=== PATIENT | female | born 1990 | race African-American/Black ===

== ENCOUNTER 2017-08-30 14:50 | Emergency (ER) | payer MEDICAID ==
[~2017-08-30] VITALS: Ht 162.6 cm; Wt 85.0 kg
[2017-08-30 14:58] VITALS: BP 117/56; PULSE 96; RESP 18; TEMP 97.7; O2SAT 99
[2017-08-30] MEDS ORDERED: SODIUM CHLORIDE 0.9% FLUSH 10 ML FLUSH IVF PRN (15:30)
[2017-08-30] MEDS ORDERED: SODIUM CHLOR 0.9% 1000 ML INJ 1,000 ML IV ONE ×2 (15:30→17:00)
--- NOTE | 2017-08-30 15:34 | PD ---
HPI Chief Complaint: Chest Pain Time Seen by Provider: 15:23 Travel History International Travel<30 days: No Contact w/Intl Traveler<30days: No Traveled to known affect area: No History of Present Illness HPI Patient is a 26-year-old female who is 34 weeks and currently being followed by [facility] SENIOR POLICY ADVISOR, presents the emergency room complaints of chest pain. Patient reports that she woke up around 2 AM this morning feeling short of breath. Patient reports that she is not having pleuritic substernal chest pain with associated nausea and vomiting. Patient reports that nothing makes pain better or worse, reports that overall, she feels weak. Patient denies any recent travels or trips, patient denies any history of PE or DVT. Patient reports that she is 6, reports that she has had these symptoms previously and her other and was given some medication to feel better. Patient did not take any medications prior to coming to the emergency room. Patient also reports that for the past 2 weeks, she has been having abdominal cramping, her primary care doctor told her to go to the SENIOR POLICY ADVISOR, patient has not followed-up with the SENIOR POLICY ADVISOR as she was too busy working. Patient reports that she has been having abdominal cramping which feels like contractions for the past 2 weeks, denies any passage of blood or vaginal fluid. Denies any fevers or chills, denies any history of hypertension, hyperlipidemia, patient with no cardiac history. [facility] Past Medical History Medical History: Denies Significant Hx ?: LMP: 01/06/18 Past Surgical History Surgical History: No Previous Surgery Social History Alcohol Use: No Tobacco Use: No Substance Use: No Allergies-Medications (Allergen,Severity, Reaction): Coded Allergies: iodine (Verified Allergy, Severe, Rash, 08/30/17) shellfish derived (Verified Allergy, Severe, 08/30/17) Reported Meds & Prescriptions Reported Meds & Active Scripts Active No Active Prescriptions or Reported Medications Review of Systems General / Constitutional: No: Fever Eyes: No: Visual changes HENT: No: Headaches Cardiovascular: Positive: Chest Pain or Discomfort Respiratory: Positive: Shortness of Breath Gastrointestinal: Positive: Nausea, Vomiting, No: Abdominal Pain Genitourinary: No: Dysuria Musculoskeletal: No: Pain Skin: No Rash Neurologic: No: Weakness Psychiatric: No: Depression Endocrine: No: Polydipsia Hematologic/Lymphatic: No: Easy Bruising Physical Exam Narrative GENERAL: Mild distress SKIN: Focused skin assessment warm/dry. HEAD: Atraumatic. Normocephalic. EYES: Pupils equal and round. No scleral icterus. No injection or drainage. ENT: No nasal bleeding or discharge. Mucous membranes pink and moist. NECK: Trachea midline. No JVD. CARDIOVASCULAR: Regular rate and rhythm. No murmur appreciated. RESPIRATORY: No accessory muscle use. Clear to auscultation. Breath sounds equal bilaterally. GASTROINTESTINAL: Abdomen soft, non-tender, gravid abdomen, hepatic and splenic margins not palpable. MUSCULOSKELETAL: No obvious deformities. No clubbing. No cyanosis. No edema. NEUROLOGICAL: Awake and alert. No obvious cranial nerve deficits. Motor grossly within normal limits. Normal speech. PSYCHIATRIC: Appropriate mood and affect; insight and judgment normal. Data Data Last Documented VS Vital Signs Date Time Temp Pulse Resp B/P (MAP) Pulse Ox O2 Delivery O2 Flow Rate FiO2 08/30/17 17:11 96 22 128/81 (97) 100 Room Air 08/30/17 14:58 97.7 Orders Orders Electrocardiogram (08/30/17 15:29) Basic Metabolic Panel (Bmp) (08/30/17 15:29) Ckmb (Isoenzyme) Profile (08/30/17 15:29) Complete Blood Count With Diff (08/30/17 15:29) Magnesium (Mg) (08/30/17 15:29) Prothrombin Time / Inr (Pt) (08/30/17 15:29) Act Partial Throm Time (Ptt) (08/30/17 15:29) Troponin I (08/30/17 15:29) Chest, Single Ap (08/30/17 15:29) Ecg Monitoring (08/30/17 15:29) Bilateral Bp Monitoring (08/30/17 15:29) Iv Access Insert/Monitor (08/30/17 15:29) Oximetry (08/30/17 15:29) Sodium Chloride 0.9% Flush (Ns Flush) (08/30/17 15:30) Sodium Chlor 0.9% 1000 Ml Inj (Ns 1000 M (08/30/17 15:30) Sodium Chlor 0.9% 1000 Ml Inj (Ns 1000 M (08/30/17 17:00) Labs Laboratory Tests Test 08/30/17 15:45 White Blood Count 9.5 TH/MM3 Red Blood Count 3.31 MIL/MM3 Hemoglobin 10.7 GM/DL Hematocrit 31.2 % Mean Corpuscular Volume 94.2 FL Mean Corpuscular Hemoglobin 32.2 PG Mean Corpuscular Hemoglobin Concent 34.2 % Red Cell Distribution Width 13.5 % Platelet Count 277 TH/MM3 Mean Platelet Volume 8.2 FL Neutrophils (%) (Auto) 74.2 % Lymphocytes (%) (Auto) 14.1 % Monocytes (%) (Auto) 7.6 % Eosinophils (%) (Auto) 3.6 % Basophils (%) (Auto) 0.5 % Neutrophils # (Auto) 7.0 TH/MM3 Lymphocytes # (Auto) 1.3 TH/MM3 Monocytes # (Auto) 0.7 TH/MM3 Eosinophils # (Auto) 0.3 TH/MM3 Basophils # (Auto) 0.0 TH/MM3 CBC Comment DIFF FINAL Differential Comment Prothrombin Time 10.1 SEC Prothromb Time International Ratio 1.0 RATIO Activated Partial Thromboplast Time 26.8 SEC Blood Urea Nitrogen 7 MG/DL Creatinine 0.46 MG/DL Random Glucose 74 MG/DL Calcium Level 8.6 MG/DL Magnesium Level 2.0 MG/DL Sodium Level 136 MEQ/L Potassium Level 3.8 MEQ/L Chloride Level 104 MEQ/L Carbon Dioxide Level 22.8 MEQ/L Anion Gap 9 MEQ/L Estimat Glomerular Filtration Rate 202 ML/MIN Total Creatine Kinase 59 U/L Troponin I LESS THAN 0.02 NG/ML MDM Medical Decision Making Medical Screen Exam Complete: Yes Emergency Medical Condition: Yes Medical Record Reviewed: Yes Interpretation(s) EKG at 1516: Sinus tachycardia at 100 bpm, QT/QTc 329/386, no acute ST or T- wave changes Vital Signs Date Time Temp Pulse Resp B/P (MAP) Pulse Ox O2 Delivery O2 Flow Rate FiO2 08/30/17 14:58 97.7 96 18 117/56 (40) 99 Differential Diagnosis Pleurisy, ACS, arrhythmia, electrolyte abnormality Narrative Course During the course of the patients emergency department visit, the patients history, examination, and differential diagnosis were reviewed with the patient. The patient was placed on a radiation monitor with oximetry and frequent blood pressure monitoring. The patient had an IV access obtained and blood work sent for analysis. The patient was initially provided IV fluids. Discussed with patient need for CTA to rule out PE given her pleuritic chest pain, patient adamantly refuses CAT scan at this time. Patient understands that when she is cleared from the emergency room, she will need to go to OB triage as she is complaining of abdominal cramping for the past 2 weeks. She will need to have monitoring. The patients laboratory studies were reviewed and remarkable for CBC & BMP Diagram 08/30/17 15:45 Calcium Level 8.6, Magnesium Level 2.0 Radiology studies were reviewed and remarkable for Last Impressions Chest X-Ray 08/30/17 1529 Signed Impressions: Service Date/Time: Wednesday, August 30, 2017 15:32 - CONCLUSION: No acute cardiopulmonary disease identified. Faheem Quiñones MD Patient reevaluated, patient reports that she is only feeling a little better, she still feels weak, another liter of IVF was given to her. Patient with pleuritic chest pain, continues to refuse PE study at this time. Patient will leave the ER against medical advice. Patient reports increased lower abdominal cramping and pelvic pressure with back pain, she will be sent upstairs to OB monitoring. Diagnosis Primary Impression: Chest pain Qualified Codes: R07.9 - Chest pain, unspecified Additional Impression: Abdominal cramping affecting Patient Instructions: General Instructions Additional Instructions: You may return to the emergency room at anytime for re-evaluation Please follow up with your primary care doctor as soon as possible Please follow up with your distribution engineering technologist as soon as possible Scripts No Active Prescriptions or Reported Meds Marge Buck DO August 30, 2017 15:34
--- NOTE | 2017-08-30 15:47 | RADRPT ---
EXAM DATE/TIME: 08/30/2017 15:32 [facility] COMPARISON: No previous studies available for comparison. INDICATIONS : Chest pain and dizziness for one day. MEDICAL HISTORY : None. SURGICAL HISTORY : None. ENCOUNTER: Initial ACUITY: 1 day PAIN SCORE: 6/10 LOCATION: Bilateral chest FINDINGS: Single AP view of the chest. The lungs are clear. Cardiomediastinal silhouette within normal limits. No evidence of pleural effusion or pneumothorax. CONCLUSION: No acute cardiopulmonary disease identified. Faheem Quiñones MD on August 30, 2017 at 15:45 Board Certified Radiologist. This report was verified electronically.
[2017-08-30 16:03] VITALS: PULSE 108; RESP 16; O2SAT 98
[2017-08-30 16:15] LABS: BASOPHIL % 0.5 % (0.0-2.0); EOSINOPHIL # 0.3 TH/MM3 (0-0.4); EOSINOPHIL % 3.6 % (0.0-4.0); HEMATOCRIT 31.2 % (35.0-46.0); HEMOGLOBIN 10.7 GM/DL (11.6-15.3); LYMPH % 14.1 % (9.0-44.0); LYMPHOCYTE # 1.3 TH/MM3 (1.0-4.8); MEAN CELL VOLUME 94.2 FL (80.0-100.0); MEAN CORPUSCULAR HEMOGLOBIN 32.2 PG (27.0-34.0); MEAN CORPUSCULAR HGB CONC 34.2 % (32.0-36.0); MEAN PLATELET VOLUME 8.2 FL (7.0-11.0); MONO % 7.6 % (0.0-8.0); MONOCYTE # 0.7 TH/MM3 (0-0.9); NEUT % 74.2 % (16.0-70.0); PLATELET COUNT 277 TH/MM3 (150-450); RED BLOOD COUNT 3.31 MIL/MM3 (4.00-5.30); RED CELL DISTRIBUTION WIDTH 13.5 % (11.6-17.2); WHITE BLOOD COUNT 9.5 TH/MM3 (4.0-11.0)
[2017-08-30 16:24] LABS: PROTHROMBIN TIME - PATIENT 10.1 SEC (9.8-11.6)
[2017-08-30 16:35] LABS: BICARBONATE 22.8 MEQ/L (21.0-32.0); BLOOD UREA NITROGEN 7 MG/DL (7-18); CALCIUM 8.6 MG/DL (8.5-10.1); CHLORIDE 104 MEQ/L (98-107); CREATININE 0.46 MG/DL (0.50-1.00); GLOMERULAR FILTRATION RATE 202 ML/MIN (>89); GLUCOSE,RANDOM 74 MG/DL (74-106); SODIUM (NA) 136 MEQ/L (136-145)
[2017-08-30 16:39] LABS: TROPONIN I LESS THAN 0.02 NG/ML (0.02-0.05)
[2017-08-30 17:11] VITALS: BP 128/81; PULSE 96; RESP 22; O2SAT 100
--- NOTE | 2017-08-30 18:56 | PD ---
HPI Chief Complaint Shortness of breath chest pain today Date Seen: August 30, 2017 Time Seen: 18:48 Travel History International Travel<30 Days: No Contact w/Intl Traveler<30Days: No Known Affected Area: No History of Present Illness HPI Patient is 26-year-old black female previous 1 now 34 weeks who sees the [facility] and is sent up here to OB ED from the main emergency room where she has been getting a chest pain workup downstairs, she had a negative EKG and chest x-ray as well as troponin levels and all her lab was within normal limits, the patient refused pulmonary angiogram or V/Q, and she was wanting to sign out of the emergency room AMA but they convinced her to come up to OB ED to monitor the baby, she is having no obstetric problem no leakage of fluid bleeding or contractions, heart rate tracing is reactive Weeks Gestation: 34 Para: 1 : 4 History Obstetric History Obstetric History 1 2 early losses Past Surgical History Narrative Surgical Social History Alcohol Use: No Tobacco Use: No Substance Abuse: No Allergies-Medications (Allergen,Severity, Reaction): Coded Allergies: iodine (Verified Allergy, Severe, Rash, 08/30/17) shellfish derived (Verified Allergy, Severe, 08/30/17) Home Meds No Active Prescriptions or Reported Meds Review of Systems General / Constitutional: No: Fever, Weight Gain, Chills, Other Eyes: No: Diploplia, Blurred Vision, Visual changes, Pain, Photophobia HENT: No: Headaches, Vertigo, Lightheadedness Cardiovascular: Chest Pain or Discomfort, No: Irregular Rhythm, Palpitations, Tachycardia, Syncope, Varicosities, Edema, Cyanosis Respiratory: Short of Breath, No: Cough, Other Gastrointestinal: Abdominal Pain, No: Nausea, Vomiting, Diarrhea Genitourinary: No: Decreased Urinary Output, Oliguria Musculoskeletal: No: Limited ROM, Weakness, Cramping, Edema, Pain Skin: No Rash, No Itching, No Dryness, No Lumps, No Change in Pigmentation, No Change in Nails, No Alopecia, No Lesions Neurologic: No: Weakness, Dizziness, Syncope, Focal Abnormalities, Coordination Problem, Headache, Slurred Speech, Seizures Psychiatric: No: Depression, Suicidal Ideations, Homicidal Ideation Endocrine: No: Heat Intolerance, Cold Intolerance, Polydipsia, Polyuria, Other Physical Exam Vital Signs Date Time Temp Pulse Resp B/P (MAP) Pulse Ox O2 Delivery O2 Flow Rate FiO2 08/30/17 17:11 96 22 128/81 (97) 100 Room Air 08/30/17 16:03 108 16 08/30/17 16:03 108 16 98 Room Air 08/30/17 14:58 97.7 96 18 117/56 (76) 99 Narrative GENERAL: Well-nourished, well-developed patient. SKIN: Warm and dry. HEAD: Normocephalic and atraumatic. EYES: No scleral icterus. No injection or drainage. ENT: No nasal drainage noted. Mucous membranes pink. Airway patent. NECK: Supple, trachea midline. No JVD. CARDIOVASCULAR: Regular rate and rhythm without murmurs, gallops, or rubs. RESPIRATORY: Breath sounds equal bilaterally. No accessory muscle use. BREASTS: Bilateral exam showed no masses , no retractions, no nipple discharge. ABDOMEN/GI: Abdomen soft, non-tender, bowel sounds present, no rebound, no guarding Gravid to [34-] weeks size Fundal Height: [34-] GENITOURINARY: External Genitalia: intact and normal in appearance BUS glands: [-] Cervix: [-post] Dilatation: [-0] Effacement: [0-] Station: [-3] Presentation: [-] Membranes: [intact ] Uterine Contractions: [none-] FHT's: Category: [1-] Baseline: [133-] Reactive: [R-] Variability: [mod-] Decels: [-none] EXTREMITIES: No cyanosis or edema. BACK: Nontender without obvious deformity. No CVA tenderness. NEUROLOGICAL: Awake and alert. Motor and sensory grossly within normal limits. Five out of 5 muscle strength in all muscle groups. Normal speech. Data Data Orders Orders Electrocardiogram (08/30/17 15:29) Basic Metabolic Panel (Bmp) (08/30/17 15:29) Ckmb (Isoenzyme) Profile (08/30/17 15:29) Complete Blood Count With Diff (08/30/17 15:29) Magnesium (Mg) (08/30/17 15:29) Prothrombin Time / Inr (Pt) (08/30/17 15:29) Act Partial Throm Time (Ptt) (08/30/17 15:29) Troponin I (08/30/17 15:29) Chest, Single Ap (08/30/17 15:29) Ecg Monitoring (08/30/17 15:29) Bilateral Bp Monitoring (08/30/17 15:29) Iv Access Insert/Monitor (08/30/17 15:29) Oximetry (08/30/17 15:29) Sodium Chloride 0.9% Flush (Ns Flush) (08/30/17 15:30) Sodium Chlor 0.9% 1000 Ml Inj (Ns 1000 M (08/30/17 15:30) Sodium Chlor 0.9% 1000 Ml Inj (Ns 1000 M (08/30/17 17:00) Labs UA dip on REMI negative Laboratory Tests Test 08/30/17 15:45 White Blood Count 9.5 Red Blood Count 3.31 Hemoglobin 10.7 Hematocrit 31.2 Mean Corpuscular Volume 94.2 Mean Corpuscular Hemoglobin 32.2 Mean Corpuscular Hemoglobin Concent 34.2 Red Cell Distribution Width 13.5 Platelet Count 277 Mean Platelet Volume 8.2 Neutrophils (%) (Auto) 74.2 Lymphocytes (%) (Auto) 14.1 Monocytes (%) (Auto) 7.6 Eosinophils (%) (Auto) 3.6 Basophils (%) (Auto) 0.5 Neutrophils # (Auto) 7.0 Lymphocytes # (Auto) 1.3 Monocytes # (Auto) 0.7 Eosinophils # (Auto) 0.3 Basophils # (Auto) 0.0 CBC Comment DIFF FINAL Differential Comment Prothrombin Time 10.1 Prothromb Time International Ratio 1.0 Activated Partial Thromboplast Time 26.8 Blood Urea Nitrogen 7 Creatinine 0.46 Random Glucose 74 Calcium Level 8.6 Magnesium Level 2.0 Sodium Level 136 Potassium Level 3.8 Chloride Level 104 Carbon Dioxide Level 22.8 Anion Gap 9 Estimat Glomerular Filtration Rate 202 Total Creatine Kinase 59 Troponin I LESS THAN 0.02 MDM Interpretation(s) Patient is 26-year-old black female at 34 weeks who sees the [facility] docs presents to our main emergency room complaining of shortness of breath and chest pain. She had a workup done downstairs EKG chest x-ray serum troponins and CBC CMP all of which were within normal limits, she had refused PE evaluation and wanted to go home AMA but was convinced to come to OB ED to monitor the baby which we have done and the baby looks good NST is reactive no contractions seen her cervix is closed Plan Plan to discharge patient home to bedrest, will give pain shot of Demerol and Phenergan while here for pain relief and she can use Tylenol at home for same. She is to continue hydration at home bed rest with heating pad or hot bath for symptoms of follow-up with her OB provider Diagnosis Diagnosis: Primary Impression: Chest pain Qualified Codes: R07.9 - Chest pain, unspecified Additional Impressions: Abdominal cramping affecting 34 weeks gestation of Previous section Disposition: 01 DISCHARGE HOME Condition: Stable Scripts No Active Prescriptions or Reported Meds Patient Instructions: General Instructions Additional Instructions: You may return to the emergency room at anytime for re-evaluation Please follow up with your primary care doctor as soon as possible Please follow up with your striker out as soon as possible Departure Forms: Tests/Procedures, Work Release Enter return to work date: September 02, 2017 Special Instructions: Patient needs several days of decreased activity in bed rest to alleviate chest pain shortness of breath she may return to work middle to end this week without limitations other than no heavy lifting Arnaud Chew II, MD August 30, 2017 18:56
[2017-08-30] MEDS ORDERED: MEPERIDINE HCL 25 MG/ML VIAL IM ONE (19:00)
[2017-08-30] MEDS ORDERED: PROMETHAZINE INJ 25 MG/ML VIAL IM ONE (19:00)
--- NOTE | 2017-08-31 10:34 | EKG ---
Date Performed: 08/30/2017 Time Performed: 15:16:02 PTAGE: 26 years EKG: SINUS TACHYCARDIA ABNORMAL RHYTHM ECG NO PREVIOUS TRACING DOCTOR: Devon Almonte Interpretating Date/Time 08/31/2017 10:32:21
== END 2017-08-30 19:30 | disposition home or self-care (01) ==
LOC: NEPC 14:50 → HOBED 19:30
DX: O26.893 Other specified pregnancy related conditions, third trimester (principal); R07.9 Chest pain, unspecified; R10.9 Unspecified abdominal pain; O34.219 Maternal care for unspecified type scar from previous cesarean delivery; Z3A.34 34 weeks gestation of pregnancy
CPT/HCPCS: 59025; 71045; 80048; 82550; 83735; 84484; 85025; 85610; 85730; 93005; 96360; 96361; 96372; 99285; J2175; J2550; J7030